=== PATIENT | male | born 1980 | race Caucasian/White ===

== ENCOUNTER 2017-06-17 09:22 | Emergency (ER) | payer OTHER, MEDICAID ==
[2017-06-17] MEDS: SOD CHLORIDE 0.9% 500 ML IV (10:12)
[2017-06-17] MEDS: KETOROLAC 15 MG INJ IV (10:12)
[2017-06-17] MEDS: ONDANSETRON 4 MG INJ IV (10:12)
[2017-06-17 10:28] LABS: ADD MAN DIFF? NO
[2017-06-17 10:31] LABS: BASOPHILS % 0.7 % (0.0-2.0); EOSINOPHILS # 0.2 10^3/ul (0.0-0.5); EOSINOPHILS % 3.5 % (0.0-7.0); HEMATOCRIT 43.5 % (42.0-52.0); HEMOGLOBIN 14.9 g/dl (14.0-18.0); LYMPHOCYTES # 2.6 10^3/ul (0.8-2.9); LYMPHOCYTES % 45.5 % (15.0-51.0); MEAN CORPUSCULAR HEMOGLOBIN 28.4 pg (29.0-33.0); MEAN CORPUSCULAR HGB CONC 34.3 g/dl (32.0-37.0); MONOCYTE # 0.3 10^3/ul (0.3-0.9); MONOCYTES % 5.9 % (0.0-11.0); NEUTROPHIL # 2.5 10^3/ul (1.6-7.5); NEUTROPHILS % 44.1 % (39.0-77.0); PLATELET COUNT 158 10^3/UL (140-415); RED BLOOD COUNT 5.24 10^6/ul (4.70-6.10); RED CELL DISTRIBUTION WIDTH 12.7 % (11.5-14.5)
[2017-06-17 10:31] LABS: WHITE BLOOD COUNT 5.8 10^3/ul (4.8-10.8)
[2017-06-17 10:55] LABS: ALANINE AMINOTRANSFERASE 153 IU/L (13-69); ALBUMIN 3.9 g/dl (3.3-4.9); ALBUMIN/GLOBULIN RATIO 1.34; ALKALINE PHOSPHATASE 128 IU/L (42-121); ANION GAP 15 (8-16); ASPARTATE AMINO TRANSFERASE 67 IU/L (15-46); BILIRUBIN,INDIRECT 0.5 mg/dl (0-1.1); BILIRUBIN,TOTAL 0.5 mg/dl (0.2-1.3); BLOOD UREA NITROGEN 10 mg/dl (7-20); CALCIUM 8.9 mg/dl (8.4-10.2); CARBON DIOXIDE 25 mmol/L (21-31); CHLORIDE 107 mmol/L (97-110); CREATININE 0.72 mg/dl (0.61-1.24); GLUCOSE 342 mg/dl (70-220); LIPASE 145 U/L (23-300); POTASSIUM 3.9 mmol/L (3.5-5.1); SODIUM 143 mmol/L (135-144); TOTAL PROTEIN 6.8 g/dl (6.1-8.1)
[2017-06-17 11:10] LABS: TROPONIN-I < 0.012 ng/ml (0.00-0.12)
== END 2017-06-17 12:31 | disposition home or self-care (01) ==
LOC: E/R 09:22
DX: R07.9 Chest pain, unspecified (principal); R20.2 Paresthesia of skin; R19.7 Diarrhea, unspecified
CPT/HCPCS: 36415; 71045; 80053; 83690; 84484; 85025; 93005; 96374; 96375; 99284-25

== ENCOUNTER 2017-12-29 10:17 | Inpatient (IN) | payer OTHER, MEDICAID ==
[2017-12-29] MEDS: SOD CHLORIDE 0.9% 100 ML (11:18)
[2017-12-29] MEDS: IODIXANOL LOCM 100 ML BTL (11:18)
[2017-12-29 11:32] LABS: ADD MAN DIFF? NO
[2017-12-29 11:36] LABS: WHITE BLOOD COUNT 6.3 10^3/ul (4.8-10.8)
[2017-12-29 11:36] LABS: BASOPHIL # 0.1 10^3/ul (0.0-0.1); BASOPHILS % 1.1 % (0.0-2.0); EOSINOPHILS # 0.2 10^3/ul (0.0-0.5); EOSINOPHILS % 2.6 % (0.0-7.0); HEMATOCRIT 43.5 % (42.0-52.0); HEMOGLOBIN 15.2 g/dl (14.0-18.0); LYMPHOCYTES # 2.4 10^3/ul (0.8-2.9); LYMPHOCYTES % 37.6 % (15.0-51.0); MEAN CORPUSCULAR HEMOGLOBIN 28.8 pg (29.0-33.0); MEAN CORPUSCULAR HGB CONC 34.9 g/dl (32.0-37.0); MEAN CORPUSCULAR VOLUME 82.4 fl (82.0-101.0); MEAN PLATELET VOLUME 11.2 fl (7.4-10.4); MONOCYTE # 0.4 10^3/ul (0.3-0.9); MONOCYTES % 6.7 % (0.0-11.0); NEUTROPHIL # 3.2 10^3/ul (1.6-7.5); NEUTROPHILS % 51.5 % (39.0-77.0); PLATELET COUNT 153 10^3/UL (140-415); RED BLOOD COUNT 5.28 10^6/ul (4.70-6.10); RED CELL DISTRIBUTION WIDTH 11.9 % (11.5-14.5)
[2017-12-29] MEDS: ASPIRIN 325 MG TAB PO (11:50)
[2017-12-29] MEDS: SOD CHLORIDE 0.9% 1,000 ML IV (11:50)
[2017-12-29 11:56] LABS: INR 0.96; PARTIAL THROMBOPLASTIN TIME 25.9 Sec (23.0-35.0); PROTIME 12.9 Sec (11.9-14.9)
[2017-12-29] MEDS: NICARDipine HCL 30 MG CAPSULE PO (12:00)
[2017-12-29 12:06] LABS: ALANINE AMINOTRANSFERASE 121 IU/L (13-69); ALBUMIN 3.7 g/dl (3.3-4.9); ALBUMIN/GLOBULIN RATIO 1.32; ALKALINE PHOSPHATASE 140 IU/L (42-121); ANION GAP 8 (5-13); ASPARTATE AMINO TRANSFERASE 78 IU/L (15-46); BILIRUBIN,INDIRECT 0.7 mg/dl (0-1.1); BILIRUBIN,TOTAL 0.7 mg/dl (0.2-1.3); BLOOD UREA NITROGEN 12 mg/dl (7-20); CALCIUM 8.9 mg/dl (8.4-10.2); CARBON DIOXIDE 24 mmol/L (21-31); CHLORIDE 103 mmol/L (97-110); CHOLESTEROL 216 mg/dl (100-200); CREATINE KINASE 79 IU/L (23-200); CREATININE 0.76 mg/dl (0.61-1.24); Estimated GFR > 60 mL/min (>60); HDL CHOLESTEROL 24 mg/dl (28-63); LDL CHOLESTEROL,CALCULATED 124 mg/dl; POTASSIUM 3.9 mmol/L (3.5-5.1); SODIUM 135 mmol/L (135-144); TOTAL PROTEIN 6.5 g/dl (6.1-8.1); TRIGLYCERIDES 338 mg/dl (0-149)
[2017-12-29 12:16] LABS: CK INDEX 0.9; CK-MB 0.75 ng/ml (0.0-2.4); TROPONIN-I < 0.012 ng/ml (0.000-0.120)
[2017-12-29 12:17] LABS: HEMOGLOBIN A1C 11.8 % (0-5.9)
[2017-12-29 12:21] LABS: ETHANOL < 10.0 mg/dl; GLUCOSE 428 mg/dl (70-220)
[2017-12-29 12:37] LABS: ADD UMIC NO; UR ASCORBIC ACID NEGATIVE (NEGATIVE); UR BILIRUBIN (Dip) NEGATIVE (NEGATIVE); UR BLOOD (Dip) NEGATIVE (NEGATIVE); UR CLARITY SLIGHTLY CLOUDY (CLEAR); UR COLOR STRAW (YELLOW); UR GLUCOSE (Dip) 3+ mg/dL (NEGATIVE); UR KETONES (Dip) NEGATIVE (NEGATIVE); UR LEUKOCYTE ESTERASE (Dip) NEGATIVE Leu/ul (NEGATIVE); UR NITRITE (Dip) NEGATIVE (NEGATIVE); UR RBC 0 /HPF (0-5); UR SPECIFIC GRAVITY (Dip) 1.032 (1.003-1.030); UR TOTAL PROTEIN (Dip) NEGATIVE (NEGATIVE); UR UROBILINOGEN (Dip) NEGATIVE (NEGATIVE); UR WBC 1 /HPF (0-5)
[2017-12-29 12:54] LABS: AMPHETAMINE/METHAMPHETAMINE Negative (NEGATIVE); BARBITURATES Negative (NEGATIVE); BENZODIAZEPINES Negative (NEGATIVE); CANNABINOIDS Negative (NEGATIVE); COCAINE Negative (NEGATIVE); OPIATES Negative (NEGATIVE)
[2017-12-29] MEDS ORDERED: IBUPROFEN 600 MG TAB PO (14:00)
[2017-12-29] MEDS ORDERED: MAGNESIUM HYDROXIDE 30ML CUP PO (14:00)
[2017-12-29] MEDS ORDERED: ONDANSETRON 4 MG INJ IV (14:00)
[2017-12-29] MEDS ORDERED: NACL 0.9% 3 ML SYG IV (14:00)
[2017-12-29] MEDS ORDERED: ACETAMINOPHEN 325 MG TAB PO (14:00)
[2017-12-29] MEDS ORDERED: GLUCOSE GEL 15 GRAM TUBE BUCCAL (16:00)
[2017-12-29] MEDS ORDERED: GLUCAGON 1 MG INJ IM (16:00)
[2017-12-29] MEDS ORDERED: DEXTROSE 50% 50 ML SYRINGE IV ×2 (16:00)
[2017-12-29] MEDS ORDERED: GLUCOSE GEL 15 GRAM TUBE PO ×2 (16:00)
[2017-12-29 17:02] LABS: TROPONIN-I < 0.012 ng/ml (0.000-0.120)
[2017-12-29] MEDS: ACCU-CHEK XX ×2 (17:51→21:15)
[2017-12-29] MEDS: INSULIN ASPART [NOVOLOG] 3 ML PEN SC (18:00)
[2017-12-29] MEDS: INSULIN GLARGINE [LANTus] (100 UNITS/ML) SYG SC (20:00)
[2017-12-29] MEDS: metFORMIN 500 MG TAB PO (21:29)
[2017-12-29] MEDS: ATORVASTATIN 20 MG TAB PO (21:29)
[2017-12-30] MEDS ORDERED: ACCU-CHEK XX ×3 (02:00→17:30)
[2017-12-30] MEDS: ACCU-CHEK XX ×5 (02:00→20:47)
[2017-12-30] MEDS: PANTOPRAZOLE (EC) 40 MG TAB PO (06:06)
[2017-12-30 06:19] LABS: ANION GAP 11 (5-13); BLOOD UREA NITROGEN 15 mg/dl (7-20); CALCIUM 9.1 mg/dl (8.4-10.2); CARBON DIOXIDE 26 mmol/L (21-31); CHLORIDE 104 mmol/L (97-110); Estimated GFR > 60 mL/min (>60); GLUCOSE 256 mg/dl (70-220); MAGNESIUM 1.8 mg/dl (1.7-2.5); PHOSPHORUS 4.1 mg/dl (2.5-4.9); SODIUM 141 mmol/L (135-144)
[2017-12-30 06:34] LABS: FREE THYROXINE INDEX (Calc) 3.06 ug/ml (0.65-3.89); T3 UPTAKE 33.3 % (23.5-40.5); T4 (THYROXINE) 9.2 ug/dl (5.5-11.0)
[2017-12-30] MEDS: INSULIN ASPART [NOVOLOG] 3 ML PEN SC ×3 (08:00→17:16)
[2017-12-30] MEDS: LISINOPRIL 10 MG TAB PO (08:43)
[2017-12-30] MEDS: ASPIRIN (EC) 81 MG TAB PO (08:43)
[2017-12-30] MEDS: ENOXAPARIN 30 MG/0.3 ML SYG SC (08:54)
[2017-12-30] MEDS: metFORMIN 500 MG TAB PO (17:15)
[2017-12-30] MEDS: INSULIN GLARGINE [LANTus] (100 UNITS/ML) SYG SC ×2 (17:15→22:11)
[2017-12-30] MEDS: ATORVASTATIN 20 MG TAB PO (20:47)
[2017-12-31] MEDS: ACCU-CHEK XX ×3 (02:00→12:00)
[2017-12-31] MEDS: PANTOPRAZOLE (EC) 40 MG TAB PO (05:29)
[2017-12-31] MEDS ORDERED: glipiZIDE 5 MG TAB PO (07:00)
[2017-12-31 07:01] LABS: ALANINE AMINOTRANSFERASE 145 IU/L (13-69); ALBUMIN 3.9 g/dl (3.3-4.9); ALKALINE PHOSPHATASE 110 IU/L (42-121); ANION GAP 11 (5-13); ASPARTATE AMINO TRANSFERASE 99 IU/L (15-46); BLOOD UREA NITROGEN 17 mg/dl (7-20); CALCIUM 9.1 mg/dl (8.4-10.2); CARBON DIOXIDE 24 mmol/L (21-31); CHLORIDE 108 mmol/L (97-110); CREATININE 0.97 mg/dl (0.61-1.24); Estimated GFR > 60 mL/min (>60); GLUCOSE 236 mg/dl (70-220); POTASSIUM 3.7 mmol/L (3.5-5.1); SODIUM 143 mmol/L (135-144); TOTAL PROTEIN 6.9 g/dl (6.1-8.1)
[2017-12-31] MEDS: INSULIN ASPART [NOVOLOG] 3 ML PEN SC ×2 (07:57→12:00)
[2017-12-31] MEDS: metFORMIN 500 MG TAB PO (07:58)
[2017-12-31] MEDS: ASPIRIN (EC) 81 MG TAB PO (07:58)
[2017-12-31] MEDS: ENOXAPARIN 30 MG/0.3 ML SYG SC (07:59)
[2017-12-31] MEDS: LISINOPRIL 10 MG TAB PO (08:02)
== END 2017-12-31 13:00 | disposition home or self-care (01) | DRG 93 ==
LOC: PP2 12-30 18:44 → E/R 10:17 → 6WM 12:40
DX: R20.2 Paresthesia of skin (principal); E11.65 Type 2 diabetes mellitus with hyperglycemia; G43.109 Migraine with aura, not intractable, without status migrainosus; E78.1 Pure hyperglyceridemia; I10 Essential (primary) hypertension; E66.9 Obesity, unspecified; Z68.38 Body mass index [BMI] 38.0-38.9, adult; Z79.82 Long term (current) use of aspirin; Z79.4 Long term (current) use of insulin; Z79.84 Long term (current) use of oral hypoglycemic drugs
CPT/HCPCS: 36415; 70450; 70496; 70498; 70553; 71045; 80048; 80053; 80061; 80307; 81001; 81003; 82550; 82553; 82962; 83036; 83735; 84100; 84436; 84479; 84484; 85025; 85610; 85730; 90686; 92610; 93005; 93306; 97161; 97166; 99291-25